=== PATIENT | female | born 1995 | race Two or more races ===

== ENCOUNTER → 2017-08-07 | Outpatient (CLI) | payer MEDICAID ==
[~2017-08-07] MED LIST: FERR325T50 PO; PREN-96 OR
== END | disposition home or self-care (01) ==
LOC: LAB 08:42
PROVIDERS: ATTEND Specialist
DX: R87.612 Low grade squamous intraepithelial lesion on cytologic smear of cervix (LGSIL) (principal)
CPT/HCPCS: 88341

== ENCOUNTER 2020-12-07 23:40 | Inpatient (IN) | payer MEDICAID ==
[~2020-12-07] VITALS: Ht 172.7 cm; Wt 99.8 kg
[2020-12-07] MEDS ORDERED: OXYTOCIN 10UNIT/ML 1ML VIAL ONE (23:53)
[2020-12-07] MEDS ORDERED: miSOPROStol 100 mcg TAB ONE (23:53)
[2020-12-07] MEDS ORDERED: LIDOCAINE 2%HCL (LOCAL ANESTH.) INJ 20ML MDV ONE (23:54)
[2020-12-07] MEDS ORDERED: PHISODERM TOP SOLN 240ML BTL TOP ONE (23:54)
[2020-12-07] MEDS ORDERED: METHYLERGONOVINE MALEATE 0.2 MG/ML AMP IM ONE (23:54)
[2020-12-07] MEDS ORDERED: DERMOPLAST 60ML BOTTLE TOP ONE (23:54)
[2020-12-07] MEDS ORDERED: LACT. RINGERS/OXYTOCIN 20UNITS 1,000 ML IV ONE (23:54)
[2020-12-07] MEDS ORDERED: WITCH HAZEL-GLYCERIN PAD TOP ONE (23:54)
[2020-12-07] MEDS ORDERED: PENICILLIN G POT 5MIL/D5 50ML 50 ML IV ONE (23:55)
[2020-12-08] VITALS (13 sets, daily range): BP systolic 100–115; BP diastolic 53–69
[2020-12-08] MEDS ORDERED: OXYTOCIN 20 UNT in SODIUM CHLORIDE 0.9% 1,000 ML IV ONE (00:30)
[2020-12-08] MEDS ORDERED: PENICILLIN G POT 5MIL/D5 50ML 50 ML IV ONE (00:30)
[2020-12-08 00:44] LABS: Urine Amorphous Crystal MOD /hpf (None Seen); Urine Bacteria FEW /hpf (None Seen); Urine Blood Negative /uL (Negative); Urine Mucus FEW (None Seen); Urine Specific Gravity 1.018 (1.001-1.035); Urine WBC 10 /hpf (0 - 5)
[2020-12-08] MEDS ORDERED: METHYLERGONOVINE MALEATE 0.2 MG/ML AMP IM ONE (00:45)
[2020-12-08 01:00] LABS: Amphetamine Screen, Urine NEGATIVE (NEGATIVE); Barbiturate Scree,Urine NEGATIVE (NEGATIVE); Benzodiazephine Screen, Urine NEGATIVE (NEGATIVE); Cannabinoid Screen, Urine NEGATIVE (NEGATIVE); Cocaine Screen, Urine NEGATIVE (NEGATIVE); Opiate Scree,Urine NEGATIVE (NEGATIVE); Phencyclidine Screen, Urine NEGATIVE (NEGATIVE)
[2020-12-08 01:24] LABS: Hemoglobin 7.8 g/dL (12.2-16.2); Mean Corpuscular Volume 62.4 fL (80.0-100.0); Red Cell Distribution Width 19.5 % (11.8-14.3)
[2020-12-08 01:26] LABS: Basophils # (auto) 0 10 ^3/uL (0-0.2); Basophils % (auto) 0.3 % (0.0-2.0); Eosinophils # (auto) 0 10 ^3/uL (0-0.8); Eosinophils % (auto) 0.4 % (0.0-7.0); Hematocrit 26.2 % (36.0-46.0); Lymphocytes # (auto) 1.2 10 ^3/uL (0.4-5.4); Mean Corpuscular Hemoglobin 18.5 pg (28.0-32.0); Mean Corpuscular Hgb Conc. 29.7 g/dL (32.0-36.0); Monocytes # (auto) 0.5 10 ^3/uL (0-1.3); Monocytes % (auto) 4.3 % (0.0-12.0); Neutrophils # (auto) 10.3 10 ^3/uL (1.6-8.6); Nucleated Red Blood Cells % 0.3 %; Platelet Count (auto) 152 10^3/uL (140-450); White Blood Cell 12.1 10^3/uL (4.4-10.8)
[2020-12-08 01:40] LABS: Albumin 2.3 g/dL (3.4-5.0); BUN/Creatinine Ratio 15.1; Calcium 8.4 mg/dL (8.5-10.1); Potassium 3.6 mmol/L (3.5-5.1)
[2020-12-08 01:42] LABS: Bilirubin, Total 0.5 mg/dL (0.2-1.0); Total Protein 6.5 g/dL (6.4-8.2)
[2020-12-08 01:43] LABS: INR 0.96 (0.9-1.15); Partial Thromboplastin Time 24.7 sec (23.0-31.2)
[2020-12-08] MEDS ORDERED: ACETAMINOPHEN 325 MG TAB PO PRN (02:30)
[2020-12-08] MEDS: FERROUS SULFATE 325 MG TAB PO SCH ×3 (04:19→21:46)
[2020-12-08] MEDS: IBUPROFEN 600 MG TAB PO PRN ×2 (04:19→12:07)
[2020-12-08] MEDS ORDERED: INFLUENZA QUAD 2020-2021 0.5 ML SYRG IM ONE (08:00)
[2020-12-08] MEDS ORDERED: TETANUS-DIPTH-ACEL PERTUSSIS 0.5ML SYR Tdap IM ONE (08:00)
[2020-12-09 03:30] VITALS: BP 97/56
[2020-12-09] MEDS: FERROUS SULFATE 325 MG TAB PO SCH (05:36)
[2020-12-09 07:25] VITALS: BP 113/65
[2020-12-09] MEDS ORDERED: MEASLES, MUMPS & RUBELLA VAC(MMRII) 0.5ML SC ONE (08:45)
[2020-12-09 10:18] LABS: Rubella Antibodies, IgG <0.90 index (Immune >0.99)
[2020-12-09 10:45] VITALS: BP 107/59
[2020-12-09] MEDS ORDERED: DOCU100T15 PO (10:59)
[2020-12-09] MEDS ORDERED: IBUP600T27 PO (11:00)
== END 2020-12-09 13:17 | disposition home or self-care (01) | DRG 560 ==
LOC: LDRP 23:40 → OBSVTOIN 23:40 → LDRP 12-08 00:04
PROVIDERS: ADMIT Obstetrics & Gynecology; ATTEND Obstetrics & Gynecology
PROC: 10E0XZZ Delivery of Products of Conception, External Approach (ICD-10-PCS; principal; 2020-12-08)
DX: O98.12 Syphilis complicating childbirth (principal); O90.81 Anemia of the puerperium; Z37.0 Single live birth; Z90.49 Acquired absence of other specified parts of digestive tract; Z3A.37 37 weeks gestation of pregnancy; Z20.822 Contact with and (suspected) exposure to COVID-19
CPT/HCPCS: 36415; 59025; 59409; 80053; 80307; 81001; 81002; 85025; 85610; 85730; 86592; 86703; 86762; 86850; 86900; 86901; 87340; 87426; 90715; 96361; 96365; 96372; G0378; J2540; J2590

== ENCOUNTER 2024-09-28 15:00 | Inpatient (IN) | payer SELFPAY ==
[~2024-09-28] VITALS: Ht 162.6 cm; Wt 68.0 kg
[~2024-09-28 15:00] MED LIST changes: +DOCU100T15 PO; +IBUP-1454 PO
[2024-09-28] MEDS ORDERED: DERMOPLAST 60ML BOTTLE TOP PRN ×2 (15:30)
[2024-09-28] MEDS ORDERED: LACTATED RINGER'S 1,000 ML IV SCH (15:30)
[2024-09-28] MEDS ORDERED: WITCH HAZEL-GLYCERIN PAD TOP PRN ×2 (15:30)
[2024-09-28] MEDS ORDERED: BUTORPHANOL TARTRATE 2 MG/1 ML VIAL IV PRN ×4 (15:30)
[2024-09-28] MEDS ORDERED: LIDOCAINE 2%HCL (LOCAL ANESTH.) INJ 20ML MDV IJ PRN ×2 (15:30)
[2024-09-28] MEDS ORDERED: METHYLERGONOVINE MALEATE 0.2 MG/ML AMP IM ONE (15:30)
[2024-09-28] MEDS ORDERED: PHISODERM TOP SOLN 240ML BTL TOP PRN ×2 (15:30)
--- NOTE | 2024-09-28 15:34 | LDN2 ---
Labor and Delivery Note Date 09/28/24 Age 29 8 Para 8 EGA 37.6 wk by LMP dating, NO PNL care Diagnosis Term IUP in active labor, 10cm on arrival, no PNL care Vaginal Delivery: VTX Vacuum Assisted: No Placenta: Spontaneous Sex: Female Weight 7lb 0 oz Apgars 8/9 Amniotic Fluid: Clear Anesthesia None Episiotomy: No Extension: No Repaired with N/A EBL 100 mL Labs Laboratory Tests 12/08/20 00:55: Hepatitis B Surface Antigen Negative, HIV (1&2) Antibody Negative Blood Bank 12/08/20 00:55: Blood Type A POSITIVE Complications None Comments/Significant Med Mary uncomplicated within minutes of arrival to L&D NIDIA REDMOND DO Sep 28, 2024 15:34
--- NOTE | 2024-09-28 15:40 | DVHHP ---
ADMIT DATE: 09/28/2024 CHIEF COMPLAINT: Uterine contractions. HISTORY OF PRESENT ILLNESS: This is a 29-year-old female. She is 8, para 7 with term intrauterine . The patient reports having symptoms of active labor hours prior to arrival. She denies any vaginal bleeding or leaking of fluid. The patient has not had any care during the . Upon arrival, she was found to be 10 cm, fully dilated, and the patient requested to "push." PAST MEDICAL HISTORY: Reports anemia. PAST SURGICAL HISTORY: Denies. MEDICATIONS: None. ALLERGIES: No known drug allergies. SOCIAL HISTORY: Denies any tobacco, alcohol or illicit drug use. FAMILY HISTORY: Negative. REVIEW OF SYSTEMS: Negative otherwise stated in the history of present illness. PHYSICAL EXAMINATION: VITAL SIGNS: Stable. GENERAL: She is alert. She is in moderate distress over being in active labor. HEENT: Normocephalic, atraumatic. Extraocular muscles intact. NECK: Supple. No palpable thyromegaly. ABDOMEN: Soft, gravid, nontender. EXTREMITIES: Without cyanosis or edema. PELVIC: Shows normal external female genitalia with no lesions. Cervix is 10 cm dilated. Membranes are intact. Baby is +2 station in the vertex presentation. heart rate 130-140 beats per minute with moderate variability. Regular contractions every 5 minutes. ASSESSMENT: Term intrauterine , in active labor, GBS unknown, no care. PLAN: Admit for imminent vaginal delivery. Has been consented for treatment and delivery of fetus. Anticipated vaginal delivery. DO MALIA Moffett/TANYA TID: [id number] RECEIPT: [id number]
[2024-09-28 16:03] LABS: Basophils # (auto) 0 10 ^3/uL (0-0.2); Basophils % (auto) 0.4 % (0.0-2.0); Eosinophils # (auto) 0 10 ^3/uL (0-0.8); Hemoglobin 9.3 g/dL (12.2-16.2); Mean Corpuscular Hemoglobin 19.8 pg (28.0-32.0); Nucleated Red Blood Cells % 0.1 %
[2024-09-28 16:05] LABS: Hematocrit 30.6 % (36.0-46.0); Lymphocytes % (auto) 18.1 % (10.0-50.0); Mean Corpuscular Hgb Conc. 30.4 g/dL (32.0-36.0); Monocytes # (auto) 0.3 10 ^3/uL (0-1.3); Monocytes % (auto) 5.3 % (0.0-12.0); Neutrophils % (auto) 76.2 % (37.0-80.0); Platelet Count (auto) 219 10^3/uL (140-450); Red Blood Cells 4.71 10^6/uL (4.0-5.20); Red Cell Distribution Width 20.3 % (11.8-14.3); White Blood Cell 5.3 10^3/uL (4.4-10.8)
[2024-09-28 16:19] LABS: Urine Bacteria FEW /hpf (None Seen); Urine Blood Negative /uL (Negative); Urine Clarity Turbid (Clear); Urine Color Yellow (Yellow); Urine Mucus FEW (None Seen); Urine Protein, UAD TRACE (Negative); Urine Urobilinogen 6 mg/dL (Negative); Urine WBC 342 /hpf (0 - 5); Urine WBC Clumps PRESENT /hpf (None Seen)
[2024-09-28 16:21] LABS: Alanine Aminotransferase 14 U/L (7-40); Albumin 3.7 g/dL (3.2-4.8); Anion Gap 10 (5-15); Aspartate Aminotransferase 23 U/L (13-40); BUN/Creatinine Ratio 17.5 (10.0-20.0); Bilirubin, Total 0.9 mg/dL (0.2-1.0); Calcium 8.7 mg/dL (8.7-10.4); Carbon Dioxide 23 mmol/L (20-31); Chloride 106 mmol/L (98-107); Sodium 139 mmol/L (136-145); Total Protein 6.7 g/dL (5.7-8.2); Uric Acid 4.6 mg/dL (3.1-7.8)
[2024-09-28 16:28] LABS: Amphetamine Screen, Urine Neg (NEGATIVE); Barbiturate Scree,Urine Neg (NEGATIVE); Benzodiazephine Screen, Urine Neg (NEGATIVE); Cannabinoid Screen, Urine Neg (NEGATIVE); Cocaine Screen, Urine Neg (NEGATIVE); Opiate Scree,Urine Neg (NEGATIVE); Phencyclidine Screen, Urine Neg (NEGATIVE)
[2024-09-28 16:28] LABS: Alkaline Phosphatase 240 U/L (46-116); Blood Urea Nitrogen 7 mg/dL (9-23); Glucose 120 mg/dL (74-106); Potassium 3.4 mmol/L (3.5-5.1)
[2024-09-28 16:30] LABS: INR 0.94 (0.9-1.15); Partial Thromboplastin Time 25.3 SEC (24.5-34.5)
[2024-09-28] MEDS: LACT. RINGERS/OXYTOCIN 20UNITS 500 ML IV ONE ×2 (17:31→17:32)
[2024-09-28] MEDS: miSOPROStol 100 mcg TAB ONE (18:00)
[2024-09-28 18:06] LABS: Hepatitis B Surface Antibody Positive (Negative)
[2024-09-28] MEDS ORDERED: ACETAMINOPHEN 325 MG TAB PO PRN (18:15)
[2024-09-28] MEDS ORDERED: ONDANSETRON ODT 4 MG TAB PO PRN (18:15)
[2024-09-28 18:22] LABS: Hepatitis C Antibody Negative (Negative)
[2024-09-28 19:00] VITALS: BP 117/74; PULSE 82; RESP 16; TEMP 97.8; O2SAT 95
[2024-09-28] MEDS: IBUPROFEN 600 MG TAB PO PRN (19:06)
[2024-09-28] MEDS: DOCUSATE SOD 100 MG CAP PO SCH (21:59)
[2024-09-28 23:00] VITALS: BP 117/76; PULSE 96; RESP 16; TEMP 98.2; O2SAT 97
[2024-09-28] MEDS: LACTATED RINGER'S 1,000 ML IV SCH (23:30)
[2024-09-29 03:00] VITALS: BP 117/72; PULSE 85; RESP 16; TEMP 98.3; O2SAT 98
--- NOTE | 2024-09-29 06:03 | DVHPN2 ---
Progress Note Date Seen: Sep 29, 2024 Subjective PPD#1 s/p Term , No PNL care NO complaints. Lochia mild. No pain vital signs Vital Sign Date Time Temp Pulse Resp B/P (MAP) Pulse Ox O2 Delivery O2 Flow Rate FiO2 09/29/24 03:00 98.3 85 16 117/72 (87) 98 98.3 09/28/24 19:00 Room Air 09/28/24 17:54 0.0 Total Intake and Output 09/28/24 09/28/24 09/29/24 15:00 23:00 07:00 Output Total 400 ml 300 ml Balance -400 ml -300 ml medications Current Medications Medications Dose Ordered Sig/Tripp Route Start Time Stop Time Status Last Admin Dose Admin Lactated Ringer's 1,000 ml @ 125 mls/hr Q8H IV 09/28/24 15:30 UNV Witch Flora 1 pad PRN PRN TOP 09/28/24 15:30 UNV Sodium Lauryl Sulfate 240 ml PRN PRN TOP 09/28/24 15:30 UNV Benzocaine 1 applic PRN PRN TOP 09/28/24 15:30 UNV Butorphanol Tartrate 1 mg Q4HPRN PRN IV 09/28/24 15:30 UNV Butorphanol Tartrate 2 mg Q4HPRN PRN IV 09/28/24 15:30 UNV Lidocaine HCl 20 ml ONCE PRN IJ 09/28/24 15:30 UNV Lactated Ringer's 1,000 ml @ 125 mls/hr Q8H IV 09/28/24 15:30 Witch [place] 1 pad PRN PRN TOP 09/28/24 15:30 Sodium Lauryl Sulfate 240 ml PRN PRN TOP 09/28/24 15:30 Benzocaine 1 applic PRN PRN TOP 09/28/24 15:30 Ibuprofen 600 mg Q6HP PRN PO 09/28/24 18:15 09/29/24 03:04 600 MG Acetaminophen 650 mg Q4HP PRN PO 09/28/24 18:15 Ondansetron HCl 4 mg Q4HPRN PRN PO 09/28/24 18:15 Docusate Sodium 200 mg HS PO 09/28/24 22:00 09/28/24 21:59 200 MG laboratory and microbiology Laboratory Tests 09/28/24 15:41 Test 09/28/24 15:41 Range/Units Serum Glucose 120 H 74-106 mg/dL Objective O: AFVSS Chest: heart and lung sounds normal. Abd soft, non-tender, fundus firm, BS, no rebound or guarding, Ext Neg Homans, Non-tender, edema Lochia - minimal Labs Pending. Assessment/Plan Term IUP s/p , no PNL care PPD#1 doing well Anemia, chronic Hb 9.3 Plan: Advance care Social Svc consult Check all labs Possible D/C home later today or tomorrow if remains stable. Plan discussed with: Patient CHRISTELLENIDIA HEALY DO Sep 29, 2024 06:03
[2024-09-29 06:45] VITALS: BP 110/71; PULSE 89; RESP 18; TEMP 97.8; O2SAT 95
[2024-09-29] MEDS: FERROUS SULFATE 325mg EC TAB PO SCH (08:43)
[2024-09-29 10:50] VITALS: BP 102/65; PULSE 81; RESP 18; TEMP 97.9; O2SAT 97
[2024-09-29 11:06] LABS: Rubella Antibodies, IgG <0.90 index (Immune >0.99)
[2024-09-29] MEDS: METHYLERGONOVINE MALEATE 0.2 MG/ML AMP IM ONE (14:31)
[2024-09-29] MEDS: LACT. RINGERS/OXYTOCIN 20UNITS 1,000 ML IV ONE (14:31)
[2024-09-29 15:00] VITALS: BP 115/67; PULSE 89; RESP 18; TEMP 97.8; O2SAT 97
[2024-09-29 19:00] VITALS: BP 106/69; PULSE 81; RESP 16; TEMP 98; O2SAT 97
[2024-09-29 22:44] VITALS: BP 92/63; PULSE 73; RESP 16; TEMP 97.9; O2SAT 98
[2024-09-30 03:00] VITALS: BP 105/65; PULSE 68; RESP 16; TEMP 98.2; O2SAT 97
[2024-09-30 07:00] VITALS: BP 104/63; PULSE 83; RESP 16; TEMP 98.4; O2SAT 95
--- NOTE | 2024-09-30 07:45 | DVHPN2 ---
Chief Complaints Patient reports: No new complaints Nursing reports: No new complaints Objective Vitals Vital Signs Date Time Temp Pulse Resp B/P (MAP) Pulse Ox O2 Delivery O2 Flow Rate FiO2 09/30/24 03:00 98.2 68 16 105/65 (78) 97 98.2 09/29/24 19:00 Room Air 09/28/24 17:54 0.0 Medications Current Medications Medications (Trade) Dose Ordered Sig/Tripp Route PRN Reason Start Time Stop Time Status Last Admin Ferrous Sulfate 325 mg TIDWM PO 09/29/24 08:00 09/29/24 17:59 General: Normal Lungs: Normal Cardiovascular: Normal Abdominal: Soft Extremities: Normal Studies Laboratory Tests 09/28/24 15:41 Test 09/28/24 15:41 Range/Units Serum Glucose 120 H 74-106 mg/dL Ass/Plan Assessment s/p Plan dc home fu in 2wco LENORELAVON Sep 30, 2024 07:45
--- NOTE | 2024-09-30 07:45 | DVHDS2 ---
Obstetrics Discharge Summary Obstetrics Discharge Summary Date of Admission: Sep 28, 2024 Date of Discharge: Sep 30, 2024 Reason For Admission: Onset of Labor Procedures: NST Intrapartum Procedures: Spontaneous vaginal deliv Procedures: None Operative Complicat: None Discharge Diagnosis: Term -Delivered, Delivery Discharge Information: Activity (Other), Diet (Routine), Medications (None), Instructions (Routine), Discharge to (Home), Discarge date (09-30) LAVON GROVER DO Sep 30, 2024 07:45
[2024-09-30 10:55] VITALS: BP 122/70; PULSE 95; RESP 15; TEMP 97.9; O2SAT 97
[2024-10-02 11:06] LABS: Treponema Pallidum Ab LC Reactive (Non Reactive)
== END 2024-09-30 13:20 | disposition home or self-care (01) | DRG 807 ==
LOC: LDRP 15:00 → OBSVTOIN 15:00 → LDRP 20:02
PROVIDERS: ADMIT Obstetrics & Gynecology; ATTEND Obstetrics & Gynecology
PROC: 10E0XZZ Delivery of Products of Conception, External Approach (ICD-10-PCS; principal; 2024-09-28)
DX: O99.02 Anemia complicating childbirth (principal); Z37.0 Single live birth; Z3A.37 37 weeks gestation of pregnancy
CPT/HCPCS: 36415; 59612; 80053; 80307; 81001; 81002; 84550; 85025; 85610; 85730; 86592; 86703; 86706; 86762; 86780; 86803; 86850; 86900; 86901; 87340; 94760; 96360; 96361; G0378; J2590